=== PATIENT | female | born 1960 | race Caucasian/White ===

== ENCOUNTER 2022-03-27 07:39 | Outpatient (CLI) | payer OTHER, SELFPAY ==
[2022-03-27 08:06] LABS: Hematocrit 37.5 % (35.0-49.0); Hemoglobin 12.7 g/dL (12.0-15.0)
[2022-03-27 08:43] LABS: Anion Gap 10 mmol/L (8-16); Blood Urea Nitrogen 17 mg/dL (7-18); Calcium 9.4 mg/dL (8.5-10.1); Carbon Dioxide 26 mmol/L (21-32); Chloride 103 mmol/L (98-108); Estimated Glomerular Filt Rate > 60; Glucose 129 mg/dL (70-99); Osmolality Calculated 291 mOsm/kg (285-295); Sodium 139 mmol/L (136-145)
[2022-03-30 15:04] LABS: Hemoglobin A1C 5.5 % (<5.7)
== END 2022-03-27 07:40 | disposition home or self-care (01) ==
LOC: CHSLAB 07:47
PROVIDERS: Nurse Practitioner Family; PCP Internal Medicine
DX: E11.9 Type 2 diabetes mellitus without complications (principal); S72.8X2A Other fracture of left femur, initial encounter for closed fracture; X58.XXXA Exposure to other specified factors, initial encounter
CPT/HCPCS: 36415; 80048; 83036; 85014; 85018